=== PATIENT | female | born 1940 | race Caucasian/White ===

== ENCOUNTER 2017-09-11 15:24 | Inpatient (IN) ==
[2017-09-11 16:08] VITALS: BMI 28.3
[2017-09-11] MEDS ORDERED: HYDROCODONE/APAP 5mg/325mg TABLET PO PRN (17:22)
[2017-09-11] MEDS ORDERED: MAGNESIUM OXIDE 400 MG TABLET PO PRN (17:22)
[2017-09-11] MEDS ORDERED: CYCLOBENZAPRINE 10 MG TABLET PO PRN (17:22)
--- NOTE | 2017-09-11 18:10 | Consult Note ---
Consult Information - Data of Consult Consult date: 09/11/17 Requesting Physician: Armnai Vieira MD Primary Care Provider: Boy Ratliff MD Family Provider: Boy Ratliff MD - Consult Narrative Reason for consult: Medical management History of present illness: Chrissy Major is a 77 y/o woman seen in consultation from Dr. Vieira. She has a hx of chronic low back pain, prior surgeries, and spinal stenosis, and underwent L2-L3 laminectomy, posterior instrumented fusion L2-L5 on 09/09/[address] Ledezma. She had a drain to her back that had low enough output that it was able to be removed prior to discharge. She also had a Nicole catheter. On 09/10, WBC was 14.4, hgb 10.3, hct 30.9, plt 294. Na was 132, BUN 18, cr 0.7. She also had some problems with constipation but had a bowel movement prior to discharge. She had pain and functional deficits, however, and was felt to be a good candidate for [facility] and was discharged from [facility] on 09/11/17. Chrissy reports that she had a failed back surgery about 1.5 years ago. She is wearing her TLSO brace. Currently, she has the most pain when she gets into/out of bed. She has a little bit of weakness to her right foot on occasion. She denies paresthesias to her legs but has occasional paresthesias to her right fingers secondary to carpal tunnel. She has chronic incontinence and denies dysuria or hematuria. She reports occasional dizziness/lightheadedness which infrequently results in syncope. She had a full workup done at [facility] for syncope, and Chrissy reports that her only diagnosis was that "my brain shrunk". She c/o a hoarse voice which she frequently has anyway, but is more pronounced since intubation for surgery. She denies chest pain but sometimes has palpitations. She denies SOA, cough, or URI sx. No recent f/c. She denies visual changes - just recently had cataracts removed and is still using eye drops. She has a hiatal hernia and at times has to lay on her side to have reflux symptoms resolve. She denies abdominal pain or appetite changes. No recent leg swelling. Both of her arms have bruising and she states that she tends to bruise easily. Past Medical History Medical History Updates: OA. Spinal stenosis. HTN. Dyslipidemia. GERD. Hiatal hernia. Hepatitis in 1993 (not B or C). Hypoglycemia. Neuropathy. Urinary incontinence Surgical History: L2-L3 laminectomy, posterior instrumented fusion L2-L5 on by Dr. Ledezma. B/L cataracts removed 08/2017. Heart catheterization in 2014 - neg. Bladder surgery X 2. Hysterectomy. Back surgery. Bilat total hip arthroplasties. Left knee scope. Rt shoulder and rt arm nerve repair Family History Updates: Mother had uterine cancer and at age 45. Father of heart problems and DM. at age 60. 7 siblings: only 2 are living. Living sister has Alzheimer's. Oldest brother had DM and cancer, oldest sister had DM. Another brother had lung cancer. Another sister of unknown cause but suspects cancer. Family History: As Above - Social History Smoking status: Never smoker Substance use type: does not use Alcohol intake frequency: holidays/special occasions only Current occupational status: retired Previous occupational history: [employer] Review of Systems All systems PM: 10-point ROS was reviewed, no additional remarkable complaints except - Constitutional Constitutional: Present: as per HPI - EENMT Eyes: Present: as per HPI Nose: Present: as per HPI Mouth/Throat: Present: as per HPI - Cardiovascular Cardiovascular: Present: as per HPI Vascular: Present: see HPI - Respiratory Respiratory: Present: as per HPI - Gastrointestinal Gastrointestinal: Present: as per HPI - Genitourinary Genitourinary: Present: as per HPI - Musculoskeletal Musculoskeletal: Present: as per HPI - Integumentary/Breasts Integumentary: Present: wounds (back surgery) - Neurological Neurological: Present: as per HPI - Psychiatric Psychiatric: Absent: anxiety - Endocrine Endocrine: Present: as per HPI - Hematologic/Lymphatic Hematologic/Lymphatic: Present: as per HPI Medications Home Medications Medication Instructions Recorded Confirmed Type Amlodipine Besylate [Norvasc] 5 mg PO DAILY 11/20/16 09/11/17 History Calcium Carbonate 600 mg PO DAILY 11/20/16 09/11/17 History Losartan/Hctz 100/25 [Hyzaar 1 tab PO DAILY 11/20/16 09/11/17 History 100/25] Meloxicam 7.5 mg PO DAILY 11/20/16 09/11/17 History Pantoprazole Sodium [Protonix] 40 mg PO ACB 11/20/16 09/11/17 History Cyclobenzaprine [Flexeril] 1 tab PO Q8HPRN PRN 09/11/17 09/11/17 History Diclofenac Eye Drops [Voltaren] 1 drop OP QID 09/11/17 09/11/17 History Gabapentin 1 cap PO TID 09/11/17 09/11/17 History Hydrocodone/APAP 5/325 [Ralph 1 - 2 tab PO Q4HPRN PRN 09/11/17 09/11/17 History 5/325] Magnesium Oxide [Magox 400] 800 mg PO HS PRN 09/11/17 09/11/17 History PrednisoLONE EYE DROPS [Pred Forte] 1 drop RIGHT EYE TID 09/11/17 09/11/17 History Rosuvastatin Calcium 5 mg PO DAILY 09/11/17 09/11/17 History Spironolactone [Aldactone 25 mg] 25 mg PO BID 09/11/17 09/11/17 History Allergies Allergy/AdvReac Type Severity Reaction Status Date / Time No Known Allergies Allergy Verified 02/11/17 08:57 Exam Vital Signs: Temperature 98.1 F 09/11/17 16:07 Pulse Rate 82 09/11/17 16:07 Respiratory Rate 20 09/11/17 16:07 Blood Pressure 138/67 09/11/17 16:07 Pulse Oximetry 95 09/11/17 16:07 Height/Weight/BMI: Height 1.55 m Weight 67.9 kg Body Mass Index 28.3 - Constitutional Present: no acute distress, well nourished, well developed - Routine HEENT Exam Head: Present: normocephalic Eye: Present: PERRL. Absent: conjunctival icterus, scleral injection - Routine Neck Exam Present: supple. Absent: lymphadenopathy - Routine Respiratory Exam Present: CTA bilaterally - Routine Cardiovascular Exam Present: RRR, S1, S2 - Routine Abdominal Exam Present: soft, normoactive bowel sounds, non distended, non tender - Routine Extremities Exam Present: no edema, pulses intact - Routine Back/Spine/Pelvis Exam Back/Spine: Absent: CVA tenderness - Routine Skin Exam Present: dry, warm Comments: unable to examine surgical incisions in current setting - Routine Neurological Exam Present: alert, oriented X3, CN II-XII intact, moving all extremities, vision grossly intact, hearing grossly intact, normal speech. Absent: sensory deficit , motor deficit, altered mental status, facial asymmetry - Routine Psychiatric Exam Present: normal affect, normal thought process, cooperative Assessment and Plan Assessment and Plan: Assessment L2-L3 laminectomy, posterior instrumented fusion L2-L5 on 09/09/[address] Ledezma. Spinal stenosis HTN Dyslipidemia GERD hiatal hernia Urinary incontinence B/L cataracts removed Hepatitis (remote) - resolved Neuropathy - right hand/fingers Plan S/P back surgery -per attending -PT/OT -TLSO, WBAT -Restrictions: no twisting, bending, pushing, pulling, or lifting more than 10 lbs. -Pain: Ralph Q4h for now, wean as able Anemia (mild) -monitor Hyponatremia @ [facility] -recheck in am HTN, dyslipidemia -continue home meds Neuropathy -gabapentin Cataracts -cont eye drops GERD/hiatal hernia -PPI GI Prophylaxis: Protonix Resuscitation Status: Full Code - Physician Narrative Physician: Susanne Perry MD Narrative: Date: 09/11/17 Time: 1849 Ms. Major was independently interviewed and examined by me. She is just back from dinner. She feels pretty well. Her pain is controlled. She denies any recent fever or chills. She did choke on something early this morning and apparently brought up a large bolus of sputum that was greenish colored. Her breathing has been normal for her and she never had any decreased oxygen saturations with that cough. PE: Gen: alert and oriented. NAD Skin: warm and dry HEENT: NC/AT PERRL, EOMI, Sclera, lids and conjunctiva wnl, MMM, OP clear Neck: supple. No JVD, Carotids 2+ without bruits. Lungs: clear, No rales, rhonchi, wheezes. CV: regular. 2/6 MAIKEL Abd: soft. NT/ND, +BS, she is wearing her thoracic back brace that covers front to back MS: Trace edema. Good strength and ROM. Neuro: No focal deficit Psy: normal mood and affect Assessment: L2-L3 laminectomy, posterior instrumented fusion L2-L5 on 09/09/[address] Ledezma. Spinal stenosis HTN Dyslipidemia GERD hiatal hernia Urinary incontinence B/L cataracts removed Hepatitis (remote) - resolved Neuropathy - right hand/fingers Plan S/P back surgery -per attending -PT/OT -TLSO, WBAT -Restrictions: no twisting, bending, pushing, pulling, or lifting more than 10 lbs. -Pain: Ralph Q4h for now, wean as able Anemia (mild) -monitor Hyponatremia @ [facility] -recheck in am HTN, dyslipidemia -continue home meds Neuropathy -gabapentin Cataracts -cont eye drops GERD/hiatal hernia -PPI I have reviewed the nurse practitioner documentation and we have discussed the assessment and plan and I agree with as stated above. Hospital Course Summary Disclaimer: The visit summary below is not to be considered part of the above Progress Note. Hospital Course: 09/11/17 S/P back surgery -per attending -PT/OT -TLSO, WBAT -Restrictions: no twisting, bending, pushing, pulling, or lifting more than 10 lbs. -Pain: Ralph Q4h for now, wean as able Anemia (mild) -monitor Hyponatremia @ [facility] -recheck in am HTN, dyslipidemia -continue home meds Neuropathy -gabapentin Cataracts -cont eye drops GERD/hiatal hernia -PPI
[2017-09-11] MEDS ORDERED: HYDROCODONE/APAP 5mg/325mg TABLET PO SCH (18:45)
[2017-09-11] MEDS: HYDROCODONE/APAP 5mg/325mg TABLET PO PRN (20:02)
[2017-09-11] MEDS: GABAPENTIN 300 MG CAPSULE PO SCH (20:06)
[2017-09-11] MEDS: ROSUVASTATIN 5 MG TABLET PO SCH (20:07)
[2017-09-11] MEDS: SPIRONOLACTONE 25 MG TABLET PO SCH (20:07)
[2017-09-11] MEDS: DICLOFENAC 0.1% OP SCH (20:12)
[2017-09-11] MEDS: EYE OP SCH (20:12)
[2017-09-11] MEDS: PrednisoLONE 1% EYE DROPS 5ml RIGHT EYE SCH (20:13)
[2017-09-12] MEDS: HYDROCODONE/APAP 5mg/325mg TABLET PO PRN ×5 (00:13→21:45)
[2017-09-12] MEDS: PANTOPRAZOLE 40 MG TABLET PO SCH (05:39)
[2017-09-12] MEDS: SPIRONOLACTONE 25 MG TABLET PO SCH ×2 (08:54→13:36)
[2017-09-12] MEDS: MELOXICAM 7.5 MG TABLET PO SCH (08:54)
[2017-09-12] MEDS: GABAPENTIN 300 MG CAPSULE PO SCH ×3 (08:55→21:45)
[2017-09-12] MEDS: CALCIUM CARBONATE 600 MG TABLET PO SCH (08:55)
[2017-09-12] MEDS: AMLODIPINE 5 MG TABLET PO SCH (08:55)
[2017-09-12] MEDS: EYE OP SCH ×5 (10:15→21:47)
[2017-09-12] MEDS: PrednisoLONE 1% EYE DROPS 5ml RIGHT EYE SCH (10:15)
[2017-09-12] MEDS: DICLOFENAC 0.1% OP SCH ×5 (10:15→21:47)
--- NOTE | 2017-09-12 10:53 | IRU 24Hr Post Admit Eval ---
24 Hr Post Admission Physical - Relevant Changes Relevant Changes: Yes Reviewed: I have reviewed the patient's information and concur with the finding and results of the pre-admission screen. Certification: I certify the patient for rehabilitation. - Patient Condition (1) Lumbar radiculopathy, chronic Status: Chronic Code(s): M54.16 - Radiculopathy, lumbar region Classification: Present on IRF Admission, IRF Tx That Should Address Diagnosis, Diagnosis Requiring Medical Follow Up (2) Peripheral neuropathy Status: Chronic Qualifiers: Peripheral neuropathy type: polyneuropathy associated with underlying disease Qualified Code(s): G63 - Polyneuropathy in diseases classified elsewhere Code(s): G62.9 - Polyneuropathy, unspecified Classification: Present on IRF Admission, IRF Tx That Should Address Diagnosis, Diagnosis Requiring Medical Follow Up (3) Lumbar spinal stenosis Status: Chronic Qualifiers: Neurogenic claudication status: without neurogenic claudication Qualified Code(s): M48.061 - Spinal stenosis, lumbar region without neurogenic claudication Code(s): M48.06 - Spinal stenosis, lumbar region Classification: Diagnosis Requiring Medical Follow Up (4) Benign essential hypertension Status: Chronic Code(s): I10 - Essential (primary) hypertension Classification: Present on IRF Admission, IRF Tx That Should Address Diagnosis, Diagnosis Requiring Medical Follow Up (5) Hyponatremia Status: Acute Code(s): E87.1 - Hypo-osmolality and hyponatremia Classification: Present on IRF Admission, IRF Tx That Should Address Diagnosis, Diagnosis Requiring Medical Follow Up (6) Acute blood loss anemia Status: Acute Code(s): D62 - Acute posthemorrhagic anemia Classification: Present on IRF Admission, IRF Tx That Should Address Diagnosis - Prior Functional Status Lives With: Alone Residence Type: Apartment/Private Home Assitive Devices: Four Wheeled Walker Prior Functional Status: Indep. at home or school, Indep. w/ IADL - Current Functional Status Current Level of Function: The patient currently is independent for eating but requires supervision for grooming. She requires moderate assistance for bathing as well as lower body dressing and toileting. She requires moderate assistance for bed/chair transfers. She does have lower extremity weakness upon flexion at the hips and extension at the knees. She requires minimum assistance for upper body dressing. She requires minimum assistance for ambulation with a rolling walker. Failed Alternative Therapy: Arrived from Acute Care Patient Requirements: The patient requires oversight by rehabilitation physician to manage their rehabilitation treatment plan and multidisciplinary approach to care that can only be provided in an IRF and requires a multidisciplinary approach to care, provided by professional PTs, OTs, STs, dieticians, RTs, rehabilitation nurses and is not available in lesser levels of care. Limitations Req: Mobility Impairment, ADL Impairment Physical Therapy Minutes: 90 Occupational Therapy Minutes: 90 Therapy: The patient is to receive therapy at least 5 days a week. - Complications/Comorbidities Impact on Functional Outcomes: This patient's peripheral neuropathy of both hands and lower extremities will negatively impact her functional outcome. Barriers to Discharge: Weakness, Balance, Endurance, Pain Control - Plan to Avoid Complications Plan to Avoid Complications: The patient cannot receive this care in a lesser intensive setting such as Snf or Outpatient Therapy due to the patient requiring the following : This patient has developed acute blood loss anemia in the postoperative timeframe. In addition she has multiple functional deficits including balance difficulties, strength with regard to transfers as well as ambulation. She requires a multidisciplinary approach with physical therapy and occupational therapy. She requires 24 hour rehabilitation nursing monitoring of her wounds and assistance with use of her TLSO brace. She requires medical supervision in view of her acute blood loss anemia, hypertension and recent hyponatremia. She continues to have a leukocytosis of unclear etiology. .
[2017-09-12] MEDS: EYE RIGHT EYE SCH ×3 (12:25→21:47)
[2017-09-12] MEDS: PREDNISOLONE 1% RIGHT EYE SCH ×3 (12:25→21:47)
[2017-09-12] MEDS: POLYETHYL GLYCOL 3350 17gm PACKET PO SCH (13:35)
--- NOTE | 2017-09-12 14:03 | IRU History & Physical Report ---
[facility] IRU Date: Date: 09/12/17 Time: 1359 Chief complaint: I'm weak HPI: Ms. Major is a very pleasant 77-year-old female referred by Dr. Adarsh Ledezma. Her primary care physician is Boy Ratliff M.D. In August 2016 the patient underwent L4-L5 interbody fusion with posterior instrumented fusion from L3-L5 by Dr. Mayorga in [place], [place]. This was an anterior approach she states. Prior to that she had a lot of leg pain and back pain along with weakness in the lower extremities. She carried a diagnosis of lumbar spinal stenosis. After the surgery, she did improve. However over the subsequent several months she started having worsening problem with more pain in the legs along with weakness of both lower extremities. She started having multiple falling spells. She also had tingling and numbness in the lower extremities as well as the hands bilaterally. According to the patient , theory was that she had injured her back on one of the falls which happened subsequent to the initial surgery in August 2016. The patient underwent epidural steroid injections starting in February 2017. These were not of great benefit. Her legs continued to be weak and ultimately she was seen by Dr. Adarsh Ledezma in [place]. (Dr. Mayorga had moved to [place]) . She was admitted to [facility] on 09/09/2017. The patient did have stenosis at L2-L3 with persistent worsening of lower back and bilateral leg pain and weakness. She was taken to surgery by Dr. Adarsh Ledezma on 2017 where an L2-L3 radical discectomy to the level of posterior longitudinal ligament including lateral recess and foraminal decompression, L2-L3 intervertebral device (PEEK cage) placement, L2-L3 anterior lumbar interbody fusion and allograft spinal fusion was performed. Estimated blood loss was only 25 cc. Preoperative diagnosis was previous fusion from L3-L5 with development of stenosis at L2-L3 as well as lumbar radicular syndrome. Postoperative diagnosis was the same. Surgical incision was in the right flank area as well as a vertical incision in the midline of the back. In the postoperative timeframe, the patient did experience acute blood loss anemia with hemoglobin dropping from a value of 13.1 on 09/09/2017 down to 10.3 on 09/10/2017. Etiology of the blood loss is not clear. In addition, the patient did have an elevation of her blood sugar at 151 on 09/10/2017 at 4:37 in the morning. Her sodium was slightly low at 134 on 09/09/2017. Prior to the procedure the patient did complain of lower extremity weakness with multiple falling episodes. She walked with a 4 wheeled walker anytime she was out and about. However she lived alone at home and was independent to modified independent with ADLs and IADLs. The patient lives in her own home. She has a ramp to get up into her home but inside she does have 2 steps. Postoperatively she was evaluated by occupational therapy and physical therapy. She required moderate assistance for bathing as well as lower body dressing and toileting. Transfers required moderate assistance. Toilet transfers were performed with moderate assistance. She was able to perform upper body dressing with minimum assistance. She was able to ambulate with a rolling walker 350 feet with minimum assistance. Because of the patient's acute blood loss anemia as well as her history of hypertension and peripheral neuropathy, she is felt to be a complex patient and could not be managed safely at a less intensive level of care such as skilled care. She requires the services of inpatient rehabilitation including 24 rehabilitation nursing to reduce fall risk and to monitor evidence of further blood loss/anemia, medical supervision to monitor anemia, peripheral neuropathy and hypertension as well as a multidisciplinary coordinated approach with physical therapy and occupational therapy. Upon testing the patient's strength on acute inpatient rehabilitation it was noted that she does continue to have reduced strength at flexion of both hips and extension at both knees. The patient has history of lumbar radiculopathy with frequent falls and evidence of lower extremity weakness. She has peripheral neuropathy as well. The following medical conditions are noted and require active monitoring and/or management: 1. Lumbar radiculopathy with lower extremity weakness which persists into the postoperative timeframe. 2. 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 Acute blood loss anemia 4. Benign essential hypertension 5. Hyponatremia The following therapies will be needed: 1. Physical therapy: for transfers and ambulation and stairs. 2. Occupational therapy: for ADL's and transfers. 3. Medical management: for the above conditions. 4. 24 hour Rehabilitation Nursing to monitor and address the following: Monitor evidence of further blood loss anemia, blood pressures, reduce pain and reduce fall risk. [facility] Patient Stated Medical History Cataracts Yes Dental Problems Yes Hearing Loss Yes Heart Murmur Yes Hypertension Yes Pneumonia Yes: HX Gastroesophageal Reflux Yes Disease Hx Incontinence Yes Osteoarthritis Yes MRSA Yes: Martina Medical History Updates: OA. Spinal stenosis. HTN. Dyslipidemia. GERD. Hiatal hernia. Hepatitis in 1993 (not B or C). Hypoglycemia. Neuropathy. Urinary incontinence Surgical History: L2-L3 laminectomy, posterior instrumented fusion L2-L5 on by Dr. Ledezma. B/L cataracts removed 08/2017. Heart catheterization in 2014 - neg. Bladder surgery X 2. Hysterectomy. Back surgery. Bilat total hip arthroplasties. Left knee scope. Rt shoulder and rt arm nerve repair Family History Updates: Mother had uterine cancer and at age 45. Father of heart problems and DM. at age 60. 7 siblings: only 2 are living. Living sister has Alzheimer's. Oldest brother had DM and cancer, oldest sister had DM. Another brother had lung cancer. Another sister of unknown cause but suspects cancer. - Social History Smoking status: Never smoker Substance use type: does not use Alcohol intake: current Alcohol intake frequency: holidays/special occasions only Housing: house Household members: none Current occupational status: retired Previous occupational history: [employer] Current residence: Apartment/Private Home Social history: Ms. Can lives in [facility]. She has been twice with both husbands having . 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 Review of Systems - Constitutional Constitutional: Present: weakness. Absent: anorexia, chills, fatigue, fever(s) , headache(s), lethargy, malaise, night sweats, weight gain, weight loss - [facility] Eyes: Absent: blurry vision, change in vision, diplopia - Cardiovascular Cardiovascular: Present: chest pain (chest wall discomfort per her description to me today ). Absent: palpitations, syncope, dyspnea on exertion, orthopnea, edema, cyanosis, heart murmur Rhythm: Present: regular rhythm - Respiratory Respiratory: Absent: cough, dyspnea, hemoptysis, dyspnea on exertion, wheezing, pain on inspiration, chest congestion, excessive phlegm production - Gastrointestinal Gastrointestinal: Present: constipation (recently), dyspepsia. Absent: abdominal pain, change in bowel habits, diarrhea, dysphagia, early satiety, hematochezia, melena, nausea, vomiting - Genitourinary Genitourinary: Present: urinary incontinence (Chronically) - Musculoskeletal Musculoskeletal: Present: myalgias. Absent: abnormal gait, arthralgias, back pain, joint swelling, limited range of motion, muscle weakness - Integumentary/Breasts Integumentary: Absent: alopecia, erythema, lesions, pruritus, rash, jaundice - Neurological Neurological: Present: frequent falls, numbness, paresthesias (both hands as well as lower extremities), weakness. Absent: abnormal gait, abnormal movements , abnormal speech, confusion, convulsions, dizziness, focal weakness, headache(s ), loss of vision, memory loss, tremor(s) - Psychiatric Psychiatric: Absent: abnormal sleep pattern, anxiety, depression - Endocrine Endocrine: Absent: cold intolerance, flushing, heat intolerance, palpitations - Hematologic/Lymphatic Hematologic/Lymphatic: Absent: easy bleeding, easy bruising, lymphadenopathy - Allergic/Immunologic Allergic/Immunologic: Absent: urticaria Medications Home Medications Medication Instructions Recorded Confirmed Type Amlodipine Besylate [Norvasc] 5 mg PO DAILY 11/20/16 09/11/17 History Calcium Carbonate 600 mg PO DAILY 11/20/16 09/11/17 History Losartan/Hctz 100/25 [Hyzaar 1 tab PO DAILY 11/20/16 09/11/17 History 100/25] Meloxicam 7.5 mg PO DAILY 11/20/16 09/11/17 History Pantoprazole Sodium [Protonix] 40 mg PO ACB 11/20/16 09/11/17 History Cyclobenzaprine [Flexeril] 1 tab PO Q8HPRN PRN 09/11/17 09/11/17 History Diclofenac Eye Drops [Voltaren] 1 drop OP QID 09/11/17 09/11/17 History Gabapentin 1 cap PO TID 09/11/17 09/11/17 History Hydrocodone/APAP 5/325 [Crystal 1 - 2 tab PO Q4HPRN PRN 09/11/17 09/11/17 History 5/325] Magnesium Oxide [Magox 400] 800 mg PO HS PRN 09/11/17 09/11/17 History PrednisoLONE EYE DROPS [Pred Forte] 1 drop RIGHT EYE TID 09/11/17 09/11/17 History Rosuvastatin Calcium 5 mg PO DAILY 09/11/17 09/11/17 History Spironolactone [Aldactone 25 mg] 25 mg PO BID 09/11/17 09/11/17 History Allergies Allergy/AdvReac Type Severity Reaction Status Date / Time No Known Allergies Allergy Verified 02/11/17 08:57 Results IRU - Labs Labs: I have reviewed records from [facility]. Exam Vital Signs: Temperature 97.9 F 09/12/17 10:07 Pulse Rate 82 09/12/17 10:07 Respiratory Rate 18 09/12/17 10:07 Blood Pressure 135/67 09/12/17 10:07 Pulse Oximetry 94 09/12/17 10:07 Height/Weight/BMI: Height 1.55 m Weight 67.9 kg Body Mass Index 28.3 - Constitutional Present: no acute distress, well nourished, well developed, average body habitus , cooperative - Routine HEENT Exam Head: Present: normocephalic, atraumatic. Absent: cushingoid faces, abrasion, laceration, hematoma Eye: Present: EOMI, PERRL. Absent: conjunctival icterus, scleral injection, periorbital swelling, nystagmus ENT: Present: mucous membranes moist, oropharynx clear - Routine Neck Exam Present: supple, full ROM, trachea midline. Absent: lymphadenopathy, thyromegaly, tenderness, swelling - Routine Chest/Breast/Axilla Exam Chest wall: Absent: tenderness, mass Axillae: Absent: lymphadenopathy, mass - Routine Respiratory Exam Present: CTA bilaterally. Absent: accessory muscle use, decreased breath sounds , prolonged expiratory phase, rales, respiratory distress, rhonchi, stridor, wheezes, crackles, distant breath sounds - Routine Cardiovascular Exam Present: RRR, S1, S2, no murmur. Absent: gallop, S3, S4, click, irregular rhythm - Routine Abdominal Exam Present: soft, normoactive bowel sounds, non distended, non tender. Absent: rebound, guarding, firm, rigid, organomegaly, mass, hernia, wound - Routine Extremities Exam Present: no edema, non tender, pulses intact, normal capillary refill. Absent: cyanosis, clubbing - Routine Back/Spine/Pelvis Exam Back/Spine: Absent: scoliosis, kyphosis, erythema, warmth Comments: TLSO brace in place The patient was subsequently placed back to bed. The TLSO brace was removed. Dressings were removed with CHARI Erazo present and removing the dressings at my direction. She has a right flank wound measuring about 3 inches long. No evidence of infection nor drainage noted. There is a second dressing removed in the right lateral posterior flank area. This is at the site of the drain which has been removed. There is no discharge from this area and no redness. Thirdly there is a long vertical midline incision in her back. There is a spot of bloody drainage present in the upper portion but no evidence of active bleeding and no evidence of infection/redness/warmth. Dressings were placed. - Routine Skin Exam Present: intact, dry, warm. Absent: cyanosis, erythema, pallor, mottling, petechiae, urticaria, lesions, jaundice - Routine Neurological Exam Present: alert, oriented X3, CN II-XII intact, motor deficit (reduced strength on flexion at both hips and extension at both knees as well as flexion at both knees.), moving all extremities, normal speech - Routine Psychiatric Exam Present: normal affect, normal thought process, cooperative, good insight, good judgment. Absent: depressed, anxious Sepsis Assessment - Evaluation Severe Sepsis: none seen IRU A/P (1) Lumbar radiculopathy, chronic Current visit: Yes Status: Chronic Patient has evidence of both sensory and motor results of her lumbar radiculopathy. She has peripheral neuropathy in the lower and upper extremities as well. She has motor weakness in the lower extremities. (2) Peripheral neuropathy Qualifiers: Peripheral neuropathy type: polyneuropathy associated with underlying disease Qualified Code(s): G63 - Polyneuropathy in diseases classified elsewhere Current visit: Yes Status: Chronic She has evidence of peripheral neuropathy associated with underlying spinal stenosis in the lumbar spine. She has had previous cervical spine injury as well according to the patient. (3) Lumbar spinal stenosis Qualifiers: Neurogenic claudication status: without neurogenic claudication Qualified Code(s): M48.061 - Spinal stenosis, lumbar region without neurogenic claudication Current visit: Yes Status: Chronic (4) Benign essential hypertension Current visit: Yes Status: Chronic (5) Hyponatremia Current visit: Yes Status: Acute (6) Acute blood loss anemia Current visit: Yes Status: Acute She has had a 3 g hemoglobin drop in the postoperative timeframe of uncertain etiology. She is at risk for further bleeding and we will monitor this carefully. DVT Prophylaxis: SCD's Resuscitation Status: Full Code - Course Hospital Course: Armani Vieira MD: - Interventions to Obtain Goals PT Treatment Plan: Balance/Proprioception, Functional Activities, Gait Training , Patient/Family Education, Therapeutic Exercise OT Treatment Plan: ADL (Basic Care), Balance Training, IADL, Pt./Family Education, Ther. Exercise for ADL Goals Progress/Modifications: This patient cannot be cared for at a less intensive level of care due to her medical problems as well as requiring 24 rehabilitation nursing monitoring of her peripheral neuropathy and evidence of blood loss. She requires close monitoring of her blood pressures. She requires a multidisciplinary approach with physical therapy and occupational therapy to allow her to return home safely.
[2017-09-12] MEDS: ROSUVASTATIN 5 MG TABLET PO SCH (22:08)
[2017-09-13] MEDS: PANTOPRAZOLE 40 MG TABLET PO SCH (06:17)
[2017-09-13] MEDS: HYDROCODONE/APAP 5mg/325mg TABLET PO PRN ×3 (06:17→21:22)
[2017-09-13] MEDS: MELOXICAM 7.5 MG TABLET PO SCH (08:48)
[2017-09-13] MEDS: SPIRONOLACTONE 25 MG TABLET PO SCH ×2 (08:49→14:25)
[2017-09-13] MEDS: AMLODIPINE 5 MG TABLET PO SCH (08:49)
[2017-09-13] MEDS: CALCIUM CARBONATE 600 MG TABLET PO SCH (08:49)
[2017-09-13] MEDS: GABAPENTIN 300 MG CAPSULE PO SCH ×3 (08:49→21:21)
[2017-09-13] MEDS: EYE OP SCH ×3 (08:50→21:21)
[2017-09-13] MEDS: PREDNISOLONE 1% RIGHT EYE SCH ×4 (08:50→21:21)
[2017-09-13] MEDS: EYE RIGHT EYE SCH ×4 (08:50→21:21)
[2017-09-13] MEDS: DICLOFENAC 0.1% OP SCH ×3 (08:50→21:21)
[2017-09-13] MEDS: POLYETHYL GLYCOL 3350 17gm PACKET PO SCH (08:52)
--- NOTE | 2017-09-13 11:12 | IRU Plan of Care ---
[facility] Overall Plan of Care - Date Date: 09/13/17 - Patient Impairments (1) Lumbar radiculopathy, chronic Code(s): M54.16 - Radiculopathy, lumbar region Status: Chronic Classification: Present on IRF Admission, IRF Tx That Should Address Diagnosis, Diagnosis Requiring Medical Follow Up (2) Peripheral neuropathy Qualifiers: Peripheral neuropathy type: polyneuropathy associated with underlying disease Qualified Code(s): G63 - Polyneuropathy in diseases classified elsewhere Code(s): G62.9 - Polyneuropathy, unspecified Status: Chronic Classification: Present on IRF Admission, IRF Tx That Should Address Diagnosis, Diagnosis Requiring Medical Follow Up (3) Lumbar spinal stenosis Qualifiers: Neurogenic claudication status: without neurogenic claudication Qualified Code(s): M48.061 - Spinal stenosis, lumbar region without neurogenic claudication Code(s): M48.06 - Spinal stenosis, lumbar region Status: Chronic Classification: Diagnosis Requiring Medical Follow Up (4) Benign essential hypertension Code(s): I10 - Essential (primary) hypertension Status: Chronic Classification: Present on IRF Admission, IRF Tx That Should Address Diagnosis, Diagnosis Requiring Medical Follow Up (5) Hyponatremia Code(s): E87.1 - Hypo-osmolality and hyponatremia Status: Acute Classification: Present on IRF Admission, IRF Tx That Should Address Diagnosis, Diagnosis Requiring Medical Follow Up (6) Acute blood loss anemia Code(s): D62 - Acute posthemorrhagic anemia Status: Acute Classification: Present on IRF Admission, IRF Tx That Should Address Diagnosis - Relevant Changes Relevant Changes: Yes (The patient's primary reason for her functional deficits is her lumbar radiculopathy with lower extremity weakness.) Reviewed: I have reviewed the patient's information and concur with the finding and results of the pre-admission screen. Certification: I certify the patient for rehabilitation. - Medical Prognosis Medical Prognosis: Good Vital Signs: Last Vital Signs Temp 98.3 F 09/13/17 07:14 Pulse 74 09/13/17 07:14 Resp 16 09/13/17 07:14 BP 134/67 09/13/17 07:14 Pulse Ox 93 09/13/17 07:14 - Anticipated Interventions Anticipated Interventions: The patient requires inpatient IRF care for PT, OT, and/or ST for residuals remaining from lumbar spinal stenosis and radiculopathy resulting in muscular weakness and strength deficits. Strength Deficits: Right Lower Extremity, Left Lower Extremity - Current Functional Status Failed Alternative Therapy: Arrived from Acute Care Patient Requires: The patient requires oversight by rehabilitation physician to manage their rehabilitation treatment plan and multidisciplinary approach to care that can only be provided in an IRF and requires a multidisciplinary approach to care, provided by professional PTs, OTs, STs, rehabilitation nurses, and may require STs, dieticians, and RTS. This is not available in lesser levels of care. Physical Therapy Minutes: 90 Occupational Therapy Minutes: 90 Therapy: The patient is to receive therapy at least 5 days a week. - Anticipated LOS/Outcomes Anticipated Functional Outcome: It is anticipated Ms. Majro will be able to return to her home independently, using a front-wheeled walker and able to perform her own personal care activities at modified independent level or better. She will still require assistance with IADL's. Anticipated Length of Stay (days): 10 Anticipated DC Destination: Home, Self Care, Home Health Service Home Safety Plan: The patient will be provided with the development of a Home Safety Plan for return to a home or home-like environment and and to ensure safety post discharge. - Plan to Avoid Complications Barriers to Attaining Goals: Weakness, Balance, Endurance Plan to Avoid Complications: The patient cannot receive this care in a lesser intensive setting such as Snf or Outpatient Therapy due to the patient requiring the following : She has medical issues of acute blood loss anemia, hypertension and has multiple functional deficits which require a multidisciplinary approach with medical supervision. This can not be provided at a less intensive setting.
--- NOTE | 2017-09-13 16:54 | Progress Note ---
- Date 09/13/17 Subjective: Patient is seen this afternoon sitting in her chair. She feels she is doing well overall. She reports her pain is controlled. Had a "pain pill" an hour ago and has no pain at rest. States the worst pain is when she is trying to lay down in bed or get out of bed. No CP or SOA. Bowels are moving. Objective Vital signs: Temperature 98.2 F 09/13/17 16:00 Pulse Rate 83 09/13/17 16:00 Respiratory Rate 16 09/13/17 16:00 Blood Pressure 106/59 09/13/17 16:00 Pulse Oximetry 94 09/13/17 16:00 Height/Weight/BMI: Height 1.55 m Weight 67.9 kg Body Mass Index 28.3 - Constitutional Present: no acute distress, well nourished, well developed - Routine HEENT Exam Head: Present: normocephalic, atraumatic - Routine Respiratory Exam Present: CTA bilaterally. Absent: wheezes - Routine Cardiovascular Exam Present: RRR, no murmur - Routine Abdominal Exam Present: soft, non distended, non tender - Routine Extremities Exam Present: no edema, normal capillary refill - Routine Skin Exam Present: dry, warm - Routine Neurological Exam Present: alert, oriented X3 - Routine Lymphatic Exam Lymphatic: Absent: adenopathy - Routine Psychiatric Exam Present: normal affect, cooperative Results - Labs CBC & Chem 7: 09/13/17 06:48 09/12/17 05:56 Assessment and Plan Assessment and Plan: Assessment L2-L3 laminectomy, posterior instrumented fusion L2-L5 on 09/09/[address] Ledezma. Spinal stenosis HTN Dyslipidemia GERD hiatal hernia Leukocytosis - POA Urinary incontinence B/L cataracts removed Hepatitis (remote) - resolved Neuropathy - right hand/fingers Plan S/P back surgery - overall doing well, pain controlled -requiring less narcotic today Leukocytosis -better today - repeat CBC in am Anemia (mild) -monitor - CBC in am Hyponatremia @ [facility] -resolved HTN, dyslipidemia -continue home meds Neuropathy -gabapentin Cataracts -cont eye drops GERD/hiatal hernia -PPI - Physician Narrative Narrative: Date: 09/13/17 Time: 1650 Hospital Course Summary Disclaimer: The visit summary below is not to be considered part of the above Progress Note. Hospital Course: 09/11/17 S/P back surgery -per attending -PT/OT -TLSO, WBAT -Restrictions: no twisting, bending, pushing, pulling, or lifting more than 10 lbs. -Pain: [place] Q4h for now, wean as able Anemia (mild) -monitor Hyponatremia @ [facility] -recheck in am HTN, dyslipidemia -continue home meds Neuropathy -gabapentin Cataracts -cont eye drops GERD/hiatal hernia -PPI
[2017-09-13] MEDS: ROSUVASTATIN 5 MG TABLET PO SCH (21:22)
[2017-09-14] MEDS: HYDROCODONE/APAP 5mg/325mg TABLET PO PRN ×3 (06:27→22:06)
[2017-09-14] MEDS: PANTOPRAZOLE 40 MG TABLET PO SCH (06:27)
[2017-09-14] MEDS: SPIRONOLACTONE 25 MG TABLET PO SCH ×2 (09:04→14:26)
[2017-09-14] MEDS: MELOXICAM 7.5 MG TABLET PO SCH (09:04)
[2017-09-14] MEDS: AMLODIPINE 5 MG TABLET PO SCH (09:05)
[2017-09-14] MEDS: GABAPENTIN 300 MG CAPSULE PO SCH ×3 (09:05→21:10)
[2017-09-14] MEDS: CALCIUM CARBONATE 600 MG TABLET PO SCH (09:05)
[2017-09-14] MEDS: PREDNISOLONE 1% RIGHT EYE SCH ×4 (09:05→21:12)
[2017-09-14] MEDS: EYE OP SCH ×3 (09:05→21:12)
[2017-09-14] MEDS: DICLOFENAC 0.1% OP SCH ×3 (09:05→21:12)
[2017-09-14] MEDS: EYE RIGHT EYE SCH ×4 (09:05→21:12)
[2017-09-14] MEDS: POLYETHYL GLYCOL 3350 17gm PACKET PO SCH (09:06)
[2017-09-14] MEDS: ROSUVASTATIN 5 MG TABLET PO SCH (21:09)
[2017-09-15] MEDS: HYDROCODONE/APAP 5mg/325mg TABLET PO PRN ×3 (05:41→21:16)
[2017-09-15] MEDS: PANTOPRAZOLE 40 MG TABLET PO SCH (05:41)
[2017-09-15] MEDS: GABAPENTIN 300 MG CAPSULE PO SCH ×3 (08:49→21:11)
[2017-09-15] MEDS: POLYETHYL GLYCOL 3350 17gm PACKET PO SCH (08:49)
[2017-09-15] MEDS: CALCIUM CARBONATE 600 MG TABLET PO SCH (08:49)
[2017-09-15] MEDS: SPIRONOLACTONE 25 MG TABLET PO SCH ×2 (08:49→14:05)
[2017-09-15] MEDS: MELOXICAM 7.5 MG TABLET PO SCH (08:49)
[2017-09-15] MEDS: AMLODIPINE 5 MG TABLET PO SCH (08:49)
[2017-09-15] MEDS: EYE OP SCH ×2 (08:50→09:52)
[2017-09-15] MEDS: PREDNISOLONE 1% RIGHT EYE SCH (08:50)
[2017-09-15] MEDS: EYE RIGHT EYE SCH (08:50)
[2017-09-15] MEDS: DICLOFENAC 0.1% OP SCH ×2 (08:50→09:52)
--- NOTE | 2017-09-15 10:37 | IRU Progress Note ---
- Subjective/Serverity of Illness Date: 09/15/17 Chrissy was evaluated in her room on inpatient rehabilitation. She reports that her pain management is adequate. She is using about 3 of the hydrocodone on a daily basis. The patient points out an area on her right cheek over the zygomatic arch. For the last 24 hours this is been somewhat red and puffy. There appears to be a small laceration or bug bite in the area. She was outdoors yesterday but does not recall any stings or bugs. She says it is nonpainful and non-itchy. It is minimally red. At this point we will wait and watch. She is cooperative with therapy. For occupational therapy she is standby assist for upper and lower body dressing and transfers. She is able to walk 500 feet at standby assist level with a front-wheeled walker for physical therapy. Brief update on medical issues we are actively monitoring and managing as follows: 1. Lumbar radiculopathy with lower extremity weakness which persists into the postoperative timeframe. Her weakness is improved. Subjectively she feels as though her legs are weak but objectively they are improved today. I checked at flexion and extension at the hips and knees and ankles. 2. 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 Acute blood loss anemia: Repeat hemoglobin 3 shows stability of hemoglobin around 10.8. No evidence of active bleeding at present. 4. Benign essential hypertension: Review of blood pressures indicates some variability. At times they are down to the 90s. At times they're up to 140. They do not appear to be excessive overall. 5. Hyponatremia: Repeat sodium is 141 which is normal. Exam Vital Signs: Temperature 97.9 F 09/15/17 07:55 Pulse Rate 79 09/15/17 07:55 Respiratory Rate 18 09/15/17 07:55 Blood Pressure 140/65 H 09/15/17 07:55 Pulse Oximetry 95 09/15/17 07:55 Height/Weight/BMI: Height 1.55 m Weight 67.9 kg Body Mass Index 28.3 - Constitutional Present: no acute distress, well nourished, well developed, average body habitus , cooperative Comments: Patient is sitting up in her chair. Her brace is on. - Routine HEENT Exam Eye: Present: EOMI, PERRL ENT: Present: mucous membranes moist, oropharynx clear Comments: Right cheek area is slightly reddish and puffy. Possibly has a small laceration or bug bite over the zygomatic arch on the right. No evidence of active infection and it is not warm. It is nontender. - Routine Neck Exam Present: supple - Routine Respiratory Exam Present: CTA bilaterally. Absent: dyspnea, wheezes - Routine Cardiovascular Exam Present: RRR, S1, S2. Absent: murmur - Routine Abdominal Exam Present: soft, normoactive bowel sounds, non distended. Absent: tenderness - Routine Extremities Exam Present: no edema, normal capillary refill - Routine Skin Exam Present: dry, warm Comments: Please see above discussion regarding her right facial area. - Routine Neurological Exam Present: alert, oriented X3, CN II-XII intact Strength appears to be fairly good at this time in the lower extremities. She subjectively feels as though her legs are "weak." However objectively they seem to be stronger than last week. - Routine Psychiatric Exam Present: normal affect, cooperative, good insight, good judgment Results IRU - Labs Labs: Have reviewed labs, chart data and other providers notes. IRU A/P (1) Lumbar radiculopathy, chronic Current visit: Yes Status: Chronic Her leg weakness appears to be better. Pain is adequately controlled with about 3 hydrocodone daily. (2) Peripheral neuropathy Qualifiers: Peripheral neuropathy type: polyneuropathy associated with underlying disease Qualified Code(s): G63 - Polyneuropathy in diseases classified elsewhere Current visit: Yes Status: Chronic (3) Lumbar spinal stenosis Qualifiers: Neurogenic claudication status: without neurogenic claudication Qualified Code(s): M48.061 - Spinal stenosis, lumbar region without neurogenic claudication Current visit: Yes Status: Chronic (4) Benign essential hypertension Current visit: Yes Status: Chronic Blood pressures are variable with some values in the 90s and some up to 140. They do not appear to be excessive. (5) Hyponatremia Current visit: Yes Status: Resolved Her sodium is now normal at 141. (6) Acute blood loss anemia Current visit: Yes Status: Acute Repeat hemoglobin appears to be stable at approximately 10.8. No evidence of ongoing bleeding. (7) Erythema Current visit: Yes Status: Acute There is mild erythema noted of the right cheek area of uncertain cause. I would suspect either a small scratch or a bug bite. At present no evidence of active infection as there is no warmth and no tenderness. DVT Prophylaxis: SCD's Resuscitation Status: Full Code - Course Hospital Course: Armani Vieira MD: 09/15/17 10:41 She is cooperative with therapy and making progress. Small area of redness in right cheek of uncertain cause. Blood pressures are variable. Sodium is now normal. - Interventions to Obtain Goals PT Treatment Plan: Balance/Proprioception, Functional Activities, Gait Training , Patient/Family Education, Therapeutic Exercise OT Treatment Plan: ADL (Basic Care), Balance Training, IADL, Pt./Family Education, Ther. Exercise for ADL Goals Progress/Modifications: Patient's pain appears to be adequately controlled. She says it is worse when she lies down at night but then gets better. She is wearing her TLSO brace all the time that she is out of bed. She has a new area of redness involving the right cheek. Differential considerations would include cellulitis, reaction from bug bite or skin scratch. Currently I do not think there is infection present as there is no warmth and no tenderness. We will be a reaction to a bug bite as she was outdoors yesterday. We will simply observe this for the time being. She is making progress with therapy and I would anticipate dismissal sometime this week when she is stable.
--- NOTE | 2017-09-15 13:46 | Progress Note ---
- Date 09/15/17 Subjective: Chrissy was seen in the dining room, just before lunch. Her TLSO Sellers was in place. Dr. Vieira informed me that she developed a red spot to her right cheek and also has a rash to the right side of her torso. She denies any known insect bites. She denies any itching on her face or on her torso. She believes that the rash on her torso is from the tape applied after surgery. She denies pain with it. She denies any other complaints such as chest pain, difficulty breathing, abdominal pain or GI complaints. Her pain is under good control, rating it at 3/10. Objective Vital signs: Temperature 97.9 F 09/15/17 07:55 Pulse Rate 79 09/15/17 07:55 Respiratory Rate 18 09/15/17 07:55 Blood Pressure 140/65 H 09/15/17 07:55 Pulse Oximetry 95 09/15/17 07:55 Height/Weight/BMI: Height 1.55 m Weight 67.9 kg Body Mass Index 28.3 - Constitutional Present: no acute distress, well nourished, well developed - Routine HEENT Exam Head: Present: normocephalic, facial swelling (minimal swelling and centralized punctate area to right zygoma) Eye: Present: PERRL. Absent: conjunctival icterus, scleral injection - Routine Respiratory Exam Present: CTA bilaterally - Routine Cardiovascular Exam Present: RRR, S1, S2 - Routine Abdominal Exam Present: soft - Routine Extremities Exam Present: no edema - Routine Skin Exam Present: intact, dry, warm, rash (unable to visualize rash on torso at time of exam) - Routine Psychiatric Exam Present: normal affect, normal thought process, cooperative Results - Labs CBC & Chem 7: 09/14/17 04:23 09/12/17 05:56 Assessment and Plan Assessment and Plan: Assessment L2-L3 laminectomy, posterior instrumented fusion L2-L5 on 09/09/[address] Ledezma. Spinal stenosis HTN Dyslipidemia GERD hiatal hernia Leukocytosis - POA Urinary incontinence B/L cataracts removed Hepatitis (remote) - resolved Neuropathy - right hand/fingers Plan S/P back surgery - overall doing well, pain controlled Leukocytosis -Resolved Anemia (mild) -Stable, monitor Hyponatremia @ [facility] -resolved HTN, dyslipidemia -continue home meds Neuropathy -gabapentin Cataracts -cont eye drops as Rx - diclofenac drops have been discontinued and prednisolone drops have been decreased to twice a day GERD/hiatal hernia -PPI Possible insect bite to right zygoma -monitor GI Prophylaxis: Protonix Resuscitation Status: Full Code - Physician Narrative Physician: Susanne Perry MD Narrative: Date: 09/15/17 Time: 1830 the patient was independently interviewed and examined by me. She is just back from supper. She feels fine. She is hoping to go home soon. Her pain is controlled. The red caul fat puller interface does look like a bite but it is not very read anymore and she denies any itching at this time. She denies any fever or chills. She denies shortness of breath. She denies any chest pain or pressure. She denies palpitations. She denies nausea, vomiting, diarrhea or constipation. No genitourinary symptoms. Physical exam: Gen: alert and oriented. NAD Skin: warm and dry HEENT: NC/AT PERRL, EOMI, Sclera, lids and conjunctiva wnl, MMM, OP clear Neck: supple. No JVD, Carotids 2+ without bruits. Lungs: clear, No rales, rhonchi, wheezes. CV: regular. 2/6 MAIKEL Abd: soft. NT/ND, +BS, she is wearing her thoracic back brace that covers front to back MS: Trace edema. Good strength and ROM. Neuro: No focal deficit Psy: normal mood and affect I have reviewed her labs, notes and imaging. Patient was discussed with the nurse practitioner and I agree with the assessment and plan. Hospital Course Summary Disclaimer: The visit summary below is not to be considered part of the above Progress Note. Hospital Course: 09/11/17 S/P back surgery -per attending -PT/OT -TLSO, WBAT -Restrictions: no twisting, bending, pushing, pulling, or lifting more than 10 lbs. -Pain: Wortham Q4h for now, wean as able Anemia (mild) -monitor Hyponatremia @ [facility] -recheck in am HTN, dyslipidemia -continue home meds Neuropathy -gabapentin Cataracts -cont eye drops GERD/hiatal hernia -PPI 09/15/17 Cataracts -cont eye drops as Rx - diclofenac drops have been discontinued and prednisolone drops have been decreased to twice a day Possible insect bite to right zygoma -monitor
[2017-09-15] MEDS: HYDROCORTISONE 1% CREAM 28.35gm TOP SCH ×2 (14:05→21:11)
[2017-09-15] MEDS: PrednisoLONE 1% EYE DROPS 5ml RIGHT EYE SCH (21:12)
[2017-09-15] MEDS: ROSUVASTATIN 5 MG TABLET PO SCH (21:12)
[2017-09-16] MEDS: PANTOPRAZOLE 40 MG TABLET PO SCH ×2 (05:16→06:42)
[2017-09-16] MEDS: HYDROCODONE/APAP 5mg/325mg TABLET PO PRN ×3 (07:32→21:40)
[2017-09-16] MEDS: HYDROCORTISONE 1% CREAM 28.35gm TOP SCH ×2 (08:53→21:36)
[2017-09-16] MEDS: MELOXICAM 7.5 MG TABLET PO SCH (08:53)
[2017-09-16] MEDS: SPIRONOLACTONE 25 MG TABLET PO SCH ×2 (08:54→14:23)
[2017-09-16] MEDS: GABAPENTIN 300 MG CAPSULE PO SCH ×3 (08:54→21:37)
[2017-09-16] MEDS: CALCIUM CARBONATE 600 MG TABLET PO SCH (08:54)
[2017-09-16] MEDS: AMLODIPINE 5 MG TABLET PO SCH (08:54)
[2017-09-16] MEDS: POLYETHYL GLYCOL 3350 17gm PACKET PO SCH (08:55)
[2017-09-16] MEDS: PrednisoLONE 1% EYE DROPS 5ml RIGHT EYE SCH ×2 (09:20→21:38)
--- NOTE | 2017-09-16 10:52 | IRU Progress Note ---
- Subjective/Serverity of Illness Date: 09/16/17 Chrissy reports that the itchy red rash on the right lateral torso is improved. She is using some cortisone cream on that. The rash on her face has subsided significantly. There is still a rounded area of redness with central depression consistent with a bug bite. However she knows of no particular specific incident that started this. The facial area is not symptomatically. There is no tenderness, discharge nor itchiness in that area. Otherwise she is doing well with therapy. Her main concern is getting in and out of bed and that is improved. She reports her pain is adequately controlled. She is having good bowel movements. She is comfortable going home tomorrow. We have a team meeting today and we'll discuss things further from a multidisciplinary standpoint. Heart rate noted to be just over 100 at 102. However it is regular. Does not sound like atrial fibrillation at present. Exam Vital Signs: Temperature 98.1 F 09/16/17 08:00 Pulse Rate 102 H 09/16/17 08:00 Respiratory Rate 16 09/16/17 08:00 Blood Pressure 140/62 H 09/16/17 08:00 Pulse Oximetry 94 09/16/17 08:00 Height/Weight/BMI: Height 1.55 m Weight 67.9 kg Body Mass Index 28.3 - Constitutional Present: no acute distress, well nourished, well developed, average body habitus , cooperative - Routine HEENT Exam Eye: Present: EOMI ENT: Present: mucous membranes moist, oropharynx clear Comments: The area on the right cheek has subsided. There still is about a nickel sized area of redness with central depression over the right zygomatic arch. This is nontender and non-itchy. The of the redness has subsided. - Routine Neck Exam Present: supple - Routine Respiratory Exam Present: CTA bilaterally. Absent: wheezes - Routine Cardiovascular Exam Present: RRR, S1, S2, tachycardia (rhythm is regular.). Absent: murmur - Routine Abdominal Exam Present: soft, normoactive bowel sounds, non distended. Absent: tenderness - Routine Extremities Exam Present: no edema, normal capillary refill - Routine Skin Exam Present: dry, warm Comments: Did not inspect right torso today. Please see above discussion regarding her right cheek area. - Routine Neurological Exam Present: alert, oriented X3, CN II-XII intact - Routine Psychiatric Exam Present: normal affect Results IRU - Labs Labs: Reviewed other providers notes and other chart data. IRU A/P (1) Lumbar radiculopathy, chronic Current visit: Yes Status: Chronic Lower extremity strength is subjectively improved. Upon my testing she appears to have adequate strength bilaterally. She has made good functional gains. (2) Peripheral neuropathy Qualifiers: Peripheral neuropathy type: polyneuropathy associated with underlying disease Qualified Code(s): G63 - Polyneuropathy in diseases classified elsewhere Current visit: Yes Status: Chronic (3) Lumbar spinal stenosis Qualifiers: Neurogenic claudication status: without neurogenic claudication Qualified Code(s): M48.061 - Spinal stenosis, lumbar region without neurogenic claudication Current visit: Yes Status: Chronic (4) Benign essential hypertension Current visit: Yes Status: Chronic Blood pressures overall are well controlled. She does have tachycardia this morning for uncertain reasons. We will monitor. Does not sound irregular. (5) Hyponatremia Current visit: Yes Status: Resolved (6) Acute blood loss anemia Current visit: Yes Status: Acute (7) Erythema Current visit: Yes Status: Acute Right facial erythema improved. Possible bug bite. Does not appear to be infected. Asymptomatic. DVT Prophylaxis: SCD's Resuscitation Status: Full Code - Course Hospital Course: Armani Vieira MD: 09/15/17 10:41 She is cooperative with therapy and making progress. Small area of redness in right cheek of uncertain cause. Blood pressures are variable. Sodium is now normal. 09/16/17 10:55 Right facial erythema is improved. Blood pressures are stable. Mild tachycardia at 102 but regular. Has made functional gains. - Interventions to Obtain Goals PT Treatment Plan: Balance/Proprioception, Functional Activities, Gait Training , Patient/Family Education, Therapeutic Exercise OT Treatment Plan: ADL (Basic Care), Balance Training, IADL, Pt./Family Education, Ther. Exercise for ADL Goals Progress/Modifications: Reassessment of her right facial erythema indicates this is likely a bug bite. At present and does not appear to be infected. It is asymptomatic. She does have a tachycardia this morning at 102. It sounds regular and does not sound like atrial fibrillation. This likewise is asymptomatic. She denies any chest pains and denies any shortness of breath. We will monitor this for the time being. She has made functional gains. She feels comfortable going home soon. Team meeting today for a further multidisciplinary approach. If tachycardia continues we will reassess lab work including thyroid.
--- NOTE | 2017-09-16 13:39 | IRU Team Meeting ---
IRU Team Meeting - Nursing Bladder Assistive Devices Utilized:: Absorbent Pad Bladder Management Level of Assist: Modified Independent Bladder Frequency of Accidents: 1 accident this shift Bowel Assistive Devices Utilized:: Medication Bowel Management Level of Assist: Modified Independent Bowel Frequency of Accidents: No accidents Vital Signs: Vital Signs - 24 hr 09/15/17 14:08 09/15/17 21:07 09/16/17 08:00 Temperature 97.9 F 98.1 F 98.1 F Pulse Rate 95 82 102 H Respiratory Rate 16 18 16 Blood Pressure 100/57 130/63 140/62 H Pulse Oximetry 92 94 94 Current Medications: Hydrocodone Bitart/Acetaminophen (Rotan 5/325) 1 tab PO Q4H PRN PRN Reason: Pain Last Admin: 09/16/17 12:44 Dose: 1 tab Amlodipine Besylate (Norvasc) 5 mg PO DAILY [facility] Last Admin: 09/16/17 08:54 Dose: 5 mg Calcium Carbonate (Caltrate) 600 mg PO DAILY [facility] Last Admin: 09/16/17 08:54 Dose: 600 mg Cyclobenzaprine HCl (Flexeril) 10 mg PO Q8H PRN PRN Reason: Muscle spasm Gabapentin (Neurontin) 300 mg PO TID [facility] Last Admin: 09/16/17 08:54 Dose: 300 mg HCTZ/Losartan Potassium (Hyzaar 100/25) 1 tab PO DAILY [facility] Last Admin: 09/16/17 08:53 Dose: 1 tab Hydrocortisone (Cortizone-10 Cream) 1 applic TOP BID [facility] Last Admin: 09/16/17 08:53 Dose: 1 applic Magnesium Hydroxide (Mom) 30 ml PO BID PRN PRN Reason: Constipation Last Admin: 09/15/17 12:22 Dose: 30 ml Magnesium Oxide (Magox) 800 mg PO HS PRN PRN Reason: Leg cramps Meloxicam (Mobic) 7.5 mg PO WB [facility] Last Admin: 09/16/17 08:53 Dose: 7.5 mg Pantoprazole Sodium (Protonix Tab) 40 mg PO ACB [facility] Last Admin: 09/16/17 06:42 Dose: Not Given Polyethylene Glycol (Miralax) 17 gm PO DAILY [facility] Last Admin: 09/16/17 08:55 Dose: Not Given Prednisolone Acetate (Pred Forte) 1 drop RIGHT EYE BID [facility] Last Admin: 05/08/18 09:20 Dose: 1 drop Rosuvastatin Calcium (Crestor) 5 mg PO HS [facility] Last Admin: 09/15/17 21:12 Dose: 5 mg Spironolactone (Aldactone 25 Mg) 25 mg PO [id number] [facility] Last Admin: 09/16/17 08:54 Dose: 25 mg Current Medical Issues: Acute blood loss anemia, facial erythremia, benign essential hypertension, recent surgery with pain Comments: I certify that I personally led the interdisciplinary team meeting and agree with comments, barriers and goals indicated. Team meeting was held in the patient's room with the patient and the following family members present: patient's daughter Ms. Major is very cooperative and has done well. She has no area of erythema on the right cheek. This is felt most likely to be due to a bug bite although she is not aware of any insect bites. It is improving. Her blood pressure is relatively well controlled. Her hemoglobin is stable at 10.8. - Physical Therapy Bed, Chair, Wheelchair Transfer Assist: Modified Independent Ambulation Ability: Modified Independent Ambulation Distance: 1,200 Stair Climbing Ability: Modified Independent Number of Steps Climbed: 20 Car Transfer Ability: Stand By Assist/Supervision Comments: She is able to ambulate a modified independent level with a front-wheeled walker 1200 feet. She is felt to be stable for a safe transition into her home environment. Patient will be assessed with Tinetti balance assessment prior to discharge. - Occupational Therapy Eating Ability: Independent Grooming Ability: Independent Bathing Ability: Modified Independent Upper Body Dressing Ability: Independent Lower Body Dressing Ability: Modified Independent Tub Transfer Assist: Modified Independent Toileting Assist: Modified Independent Toilet Transfer Assist: Modified Independent Comments: Patient is using assistive devices including a long handled shoe horn and a furrier designer and a sock aid. - Goals Physical Therapy Goals: 09/16/17: 1.) Tinetti Balance Assessment for low fall risk score. 2.) Discharge Planning Occupational Therapy Goals: 09/16/17: 1) Complete laundry task Mod I. 2) Discharge planning. - Care Plan Anticipated Length of Stay (days): 1 Anticipated DC Destination: Home, Self Care I have led this team conference and agree with the plan. Interventions/Goals: Patient will continue with therapy for the next 24 hours with anticipated safe transition to her home environment tomorrow. She will get the anemia followed up as an outpatient. She will pursue outpatient PT and OT.
[2017-09-16] MEDS: ROSUVASTATIN 5 MG TABLET PO SCH (21:37)
[2017-09-17] MEDS: PANTOPRAZOLE 40 MG TABLET PO SCH ×2 (05:24→08:46)
[2017-09-17 08:45] VITALS: BP 118/51; PULSE 90; RESP 18; TEMP 97.3; O2SAT 97
[2017-09-17] MEDS: CALCIUM CARBONATE 600 MG TABLET PO SCH (08:47)
[2017-09-17] MEDS: GABAPENTIN 300 MG CAPSULE PO SCH (08:47)
[2017-09-17] MEDS: AMLODIPINE 5 MG TABLET PO SCH (08:47)
[2017-09-17] MEDS: MELOXICAM 7.5 MG TABLET PO SCH (08:47)
[2017-09-17] MEDS: HYDROCORTISONE 1% CREAM 28.35gm TOP SCH (08:47)
[2017-09-17] MEDS: PrednisoLONE 1% EYE DROPS 5ml RIGHT EYE SCH (08:48)
[2017-09-17] MEDS: SPIRONOLACTONE 25 MG TABLET PO SCH (08:48)
[2017-09-17] MEDS: POLYETHYL GLYCOL 3350 17gm PACKET PO SCH (08:48)
--- NOTE | 2017-09-17 10:19 | IRU Progress Note ---
- Subjective/Serverity of Illness Date: 09/17/17 Chrissy was reassessed in her room on inpatient rehabilitation. CHARI Erazo was present with me for subsequent examination. Her rash has worsened a bit in the right lateral chest area. There is also some redness and a vertical line in the upper back area. This does not appear to be consistent with shingles and is more likely consistent with a heat rash type of phenomenon. She is using 1% hydrocortisone. The area is itchy and not painful she states. Otherwise she is doing quite well. She would just like a few pain pills but otherwise has all of her other medications at home. She denies any chest pain or shortness of breath. Her previously noted tachycardia yesterday has resolved. The small red area on the right cheek also has subsided a bit. This continues to have the appearance of a bug bite. It is less red and nontender. Exam Vital Signs: Temperature 97.3 F 09/17/17 08:00 Pulse Rate 90 09/17/17 08:00 Respiratory Rate 18 09/17/17 08:00 Blood Pressure 118/51 09/17/17 08:00 Pulse Oximetry 97 09/17/17 08:00 Height/Weight/BMI: Height 1.55 m Weight 67.9 kg Body Mass Index 28.3 - Constitutional Present: no acute distress, well nourished, well developed, average body habitus , cooperative - Routine HEENT Exam Head: Present: normocephalic Eye: Present: EOMI ENT: Present: mucous membranes moist, dentition normal - Routine Neck Exam Present: supple - Routine Respiratory Exam Present: CTA bilaterally. Absent: wheezes - Routine Cardiovascular Exam Present: RRR, S1, S2. Absent: murmur - Routine Abdominal Exam Present: soft, normoactive bowel sounds, non distended. Absent: tenderness - Routine Extremities Exam Present: no edema, normal capillary refill - Routine Back/Spine/Pelvis Exam Back/Spine: Absent: full ROM - Routine Skin Exam Present: dry, warm Comments: She has a red rash in the right lateral chest area in the folds below her breast laterally. There is also a building construction foreman red rash vertically in the right upper back. This does not follow a dermatomal pattern. - Routine Neurological Exam Present: alert, oriented X3, CN II-XII intact - Routine Psychiatric Exam Present: normal affect, normal thought process, cooperative, good insight, good judgment Results IRU - Labs Labs: Chart data reviewed along with other providers notes. IRU A/P (1) Lumbar radiculopathy, chronic Current visit: Yes Status: Chronic Her lower extremity weakness has improved. Pain is adequately controlled. (2) Peripheral neuropathy Qualifiers: Peripheral neuropathy type: polyneuropathy associated with underlying disease Qualified Code(s): G63 - Polyneuropathy in diseases classified elsewhere Current visit: Yes Status: Chronic (3) Lumbar spinal stenosis Qualifiers: Neurogenic claudication status: without neurogenic claudication Qualified Code(s): M48.061 - Spinal stenosis, lumbar region without neurogenic claudication Current visit: Yes Status: Chronic (4) Benign essential hypertension Current visit: Yes Status: Chronic Blood pressures are reviewed and look good. (5) Hyponatremia Current visit: Yes Status: Resolved (6) Acute blood loss anemia Current visit: Yes Status: Acute (7) Erythema Current visit: Yes Status: Acute She does have the area on her right face which is improved. I think this is a bug bite. The red rash on her right lateral chest area continues to be prominent. It does not follow a dermatomal pattern is likely a "heat rash." There is a vertical red rash in the right upper chest area posteriorly which likely is related to sweating and heat as well. DVT Prophylaxis: SCD's Resuscitation Status: Full Code - Course Hospital Course: Armani Vieira MD: 09/15/17 10:41 She is cooperative with therapy and making progress. Small area of redness in right cheek of uncertain cause. Blood pressures are variable. Sodium is now normal. 09/16/17 10:55 Right facial erythema is improved. Blood pressures are stable. Mild tachycardia at 102 but regular. Has made functional gains. 09/17/17 10:25 Patient's tachycardia has resolved. Red rash continues on right lateral chest and back area. Not in a dermatomal pattern. Pain is controlled. Functionally she is doing well. - Interventions to Obtain Goals PT Treatment Plan: Balance/Proprioception, Functional Activities, Gait Training , Patient/Family Education, Therapeutic Exercise OT Treatment Plan: ADL (Basic Care), Balance Training, IADL, Pt./Family Education, Ther. Exercise for ADL Goals Progress/Modifications: Patient will be dismissed home this afternoon after therapy. She is doing well from a functional standpoint.
--- NOTE | 2017-09-17 14:29 | Discharge Summary ---
Discharge Information Date of admission: 09/11/17 15:46 Anticipated date of discharge: 09/17/17 Attending Physician: Armani Vieira MD Primary care physician: Boy Ratliff MD Consults: 09/11/17 17:14 Physician Consult [CONS] Routine Consulting Provider: Susanne Perry Reason For Exam: Medical management Ordering Provider has Notified Cooler Supervisor: No - Discharge Diagnosis (1) Lumbar radiculopathy, chronic Status: Chronic (2) Peripheral neuropathy Status: Chronic (3) Lumbar spinal stenosis Status: Chronic (4) Benign essential hypertension Status: Chronic (5) Acute blood loss anemia Status: Acute (6) Erythema Status: Acute 1. Lumbar radiculopathy with bilateral lower extremity weakness and pain 2. Lumbar spinal stenosis, status post surgical intervention 3. Peripheral neuropathy 4. Benign essential hypertension 5. Acute blood loss anemia 6. Right lateral chest wall dermatitis - Laboratory Labs: 09/14/17 04:23 09/12/17 05:56 History of Present Illness HPI: Ms. Major underwent extensive lumbar spine surgery in August 2016. She had initial improvement but subsequently developed weakness of the lower extremities and had several falling episodes along with increasing pain in her back. Despite the use of epidural steroids she continued to worsen and was subsequently readmitted to [facility] on 09/09/2017. There was evidence of stenosis of L2-L3 with persistent worsening of lower back and bilateral pain and weakness with lumbar radiculopathy. She was taken to surgery by Dr. Adarsh Ledezma on 09/09/2017 where an L2-L3 radical discectomy to the level of posterior longitudinal ligament including lateral recess and foraminal decompression, L2-L3 intervertebral device (PEEK cage) placement, L2-L3 anterior lumbar interbody fusion and allograft spinal fusion was performed. Postoperatively she developed acute blood loss anemia. She also demonstrated hyponatremia. She had multiple functional deficits and was felt to be a good candidate for inpatient rehabilitation where she was admitted. Hospital Course This is a general summary of the patient's hospital course. For more details refer to the complete medical record. The patient was admitted to acute inpatient rehabilitation at [facility] on 09/12/2017 for a multidisciplinary coordinated approach to her recovery. She was followed by the hospitalist service as well as by Dr. Vieira, medical anthropologist. Her blood pressures were somewhat variable with some values in the high 90s and others around 140/65. She was asymptomatic in this regard. Pain management was felt to be adequate. The wounds did not display any evidence of infection. Her initial white count was elevated at 18,300. Etiology was unclear but it is felt that she received corticosteroids prior to the surgery in [place]. White blood cell count on 09/14/2017 was normal at 10,800. Hemoglobin was 11.0 falling to 10.8 as of 09/14/2017. Her sodium normalized at 141 after did been noted to be low in [place]. She did develop an area on her right cheek consisting of redness and puffiness. It was nontender. It was not felt to be consistent with an infection and looked like a "bug bite." Secondly she developed an area of redness which was very itchy on the right lateral chest wall below the skin folds. There was another area of redness consistent with a raised papular rash but more of in a vertical distribution in the right posterior chest area. These did not have the appearance of shingles. These were treated with topical 1% hydrocortisone and are consistent with an allergic dermatitis. The following levels of functional competence are to be considered preliminary information. The reader is encouraged to refer to actual therapy notes and reports for specific details. The patient was treated and followed by physical therapy. At the conclusion of therapy, the patient was able to perform the following levels of activity: She was able to transfer herself with modified independent level. Card transfers were standby assist in function. She was able to ambulate with a front wheeled walker over 1500 feet. She is felt to be stable time dismissal from a functional standpoint. In addition she was treated and followed by occupational therapy. The following was her level of functional ability at the conclusion of therapy: She is able to bathe with the use of assistive devices only. She was able to dress at independent to modified independent level. The patient was advised that if the rash does not improve she should see her physician. At this time it appears to be consistent with an allergic dermatitis or possibly a "heat rash." We did not treat her for shingles and not treat her for a yeast infection although if this continues that would be an option. She will follow-up with Dr. Watkins in [place] and Dr. Ratliff locally. Hospital course: 09/11/17 S/P back surgery -per attending -PT/OT -TLSO, WBAT -Restrictions: no twisting, bending, pushing, pulling, or lifting more than 10 lbs. -Pain: [place] Q4h for now, wean as able Anemia (mild) -monitor Hyponatremia @ [facility] -recheck in am HTN, dyslipidemia -continue home meds Neuropathy -gabapentin Cataracts -cont eye drops GERD/hiatal hernia -PPI 09/15/17 Cataracts -cont eye drops as Rx - diclofenac drops have been discontinued and prednisolone drops have been decreased to twice a day Possible insect bite to right zygoma -monitor Time spent with patient: greater than 35 minutes Resuscitation Status: Full Code Discharge Plan - Med Rec/Dispo Referrals/Follow Up: Alcides Ledezma MD [Physician] - (Dr. Audrey Ledezma on 09/24/17 at 11:15 am for Post-Op follow-up. . Appt. was scheduled prior to [place] [facility] [address] [place] [address]) Boy Ratliff MD [Primary Care Provider] - (Dr. Danisha Ratliff on 09/26/17 at 1:45 pm for Hosp. follow-up. Check-in at 1:[address] [place] [address]) Lupe Instructions: Fall Prevention for Older Adults (GEN), Lumbar Spinal Stenosis (GEN), Wound Healing and Your Diet (GEN) Additional Instructions: [facility] 09/19/17 AT 8:40AM. PLEASE ARRIVE AROUND 8: 30 FOR THIS APPOINTMENT. Prescriptions: New Hydrocortisone 1% Cream [Cortizone-10 Cream] 1 applicatio TOP BID tube Milk of Magnesia [Mom] 30 ml PO BID PRN udc PRN Reason: Constipation PEG 3350 17gm PACKET [Miralax] 17 gm PO DAILY packet Continue Losartan/Hctz 100/25 [Hyzaar 100/25] 1 tab PO DAILY Amlodipine Besylate [Norvasc] 5 mg PO DAILY Pantoprazole Sodium [Protonix] 40 mg PO ACB Diclofenac Eye Drops [Voltaren] 1 drop OP QID PrednisoLONE EYE DROPS [Pred Forte] 1 drop RIGHT EYE TID Magnesium Oxide [Magox 400] 800 mg PO HS PRN PRN Reason: Leg Cramps Rosuvastatin Calcium 5 mg PO DAILY Spironolactone [Aldactone 25 mg] 25 mg PO BID Gabapentin 1 cap PO TID Meloxicam 7.5 mg PO DAILY Calcium Carbonate 600 mg PO DAILY Changed Hydrocodone/APAP 5/325 [St[place]ford 5/325] 1 tab PO Q6H PRN #20 tab PRN Reason: Pain Discontinued Cyclobenzaprine [Flexeril] 1 tab PO Q8HPRN PRN PRN Reason: Muscle Spasm - Disposition 01 Discharged Home, Self-Care - Dismissal Complete Discharge Instructions are:: Complete
--- NOTE | 2017-09-17 14:37 | Letter to Referring Physician ---
Dear Dr. Ratliff, This is a brief note to bring you up-to-date on the status of Chrissy Major and her stay on the acute inpatient rehabilitation unit at [facility]. As you are likely aware, this patient was admitted to on for surgical intervention for her spinal stenosis and radiculopathy. The patient was stabilized while on the acute level and admitted to inpatient rehabilitation unit at [facility] on September 11, 2017. While on inpatient rehabilitation, this patient was seen by occupational therapy and physical therapy and improved overall in their functional ability. We also monitored and managed the patient's acute blood loss anemia while on Acute Rehab. Please see a copy of the history and physical examination as well as discharge summary faxed separately for further details. Please note that her dismissal hemoglobin is around 10.8 g percent. This will need to be followed up as an outpatient. This remained stable while on acute inpatient rehabilitation. Secondly, please note that she developed a red itchy rash involving the right lateral chest area. This did not appear to be consistent with shingles and was treated as an allergic dermatitis or heat rash with topical 1% hydrocortisone. Finally, she had an area on her right cheek which was a raised reddish area and most consistent with a "bug bite." The surgery was asymptomatic. Thank you for allowing us to be involved in this nice patient's care. Please contact me directly should you have any questions regarding their stay on the inpatient rehabilitation unit. Sincerely, Armani Vieira M.D.
== END 2017-09-17 12:03 | disposition home or self-care (01) | DRG 560 ==
PROVIDERS: ADMIT Internal Medicine; ATTEND Internal Medicine